=== PATIENT | male | born 1985 | race Caucasian/White ===

== ENCOUNTER 2025-04-14 22:33 | Emergency (ER) | payer OTHER, SELFPAY ==
[2025-04-14 22:33] VITALS: BP 148/88; PULSE 62; RESP 18; TEMP 36.6; O2SAT 100; BMI 25.9
[2025-04-14] MEDS: Ketorolac 30 MG/ML Syringe IM (22:52)
--- OUTSIDE RECORDS SUMMARY | 2025-04-14 22:56 | XMS RPT_ITS | CCD ---
Author Organization [facility] Care Team Providers Care Spot Welder Name Role Phone CHATA, DR CAYDEN Guerrero Admitting Unavaila ble CHATA, DR CAYDEN Guerrero Attending Unavaila ble CHATA, DR CAYDEN Guerrero Primary Care Unavaila ble MARGO, MADISYN Attending Unavailable ARAGON, MADISYN Primary Care Unavailable MADISYN ARAGON Admitting Unavailable BALTES CHECK OUT CASHIER-ARCHITECTURAL DRAFTER, DAVID Attending Unavailabl e BALTES CHECK OUT CASHIER-ARCHITECTURAL DRAFTER, DAVID Primary Care Unavailabl e Results Test Name Value Interpretation Reference Range Facil ity .Auto Diffon 02-17-2023 Basophil, Absolute 0.0 10 3/mcL Normal 0.0-0.2 [facility] ([place]) Comment on above: Performed By: #### G FR, CMP, LIPID, ANEU, ADIFF, CBC #### [address] [address] Basophils/100 WBC (Bld) 0.5 % Normal 0.0-2.5 [facility] ([place]) Comment on above: Performed By: #### G FR, CMP, LIPID, ANEU, ADIFF, CBC #### [address] [address] Eosinophil, Absolute 0.2 10 3/mcL Normal 0.0-0.4 [facility] ([place]) Comment on above: Performed By: #### G FR, CMP, LIPID, ANEU, ADIFF, CBC #### [address] [address] Eosinophils/100 WBC (Bld) 3.3 % Normal 0.0-7.0 [facility] ([place]) Comment on above: Performed By: #### G FR, CMP, LIPID, ANEU, ADIFF, CBC #### [address] [address] Lymphocyte, Absolute 1.5 10 3/mcL Normal 0.8-3.9 [facility] ([place]) Comment on above: Performed By: #### G FR, CMP, LIPID, ANEU, ADIFF, CBC #### [address] [address] Lymphocytes/100 WBC (Bld) 25.3 % Normal 10.0-50.0 [facility] ([place]) Comment on above: Performed By: #### G FR, CMP, LIPID, ANEU, ADIFF, CBC #### [address] [address] Monocyte, Absolute 0.5 10 3/mcL Normal 0.2-1.0 [facility] ([place]) Comment on above: Performed By: #### G FR, CMP, LIPID, ANEU, ADIFF, CBC #### [address] [address] Monocytes/100 WBC (Bld) 7.8 % Normal 1.7-13.0 [facility] ([place]) Comment on above: Performed By: #### G FR, CMP, LIPID, ANEU, ADIFF, CBC #### [address] [address] Neutrophils/100 WBC (Bld) 63.1 % Normal 37.0-80.0 [facility] ([place]) Comment on above: Performed By: #### G FR, CMP, LIPID, ANEU, ADIFF, CBC #### [address] [address] .GFRon 02-17-2023 GFR 122 ml/min/1.73sqm Normal [facility] ([place]) Comment on above: Result Comment: GFR Population mean for , Non- Americans Ages 20-29 = 116 mL/min/1.73 sq.m. Ages 30-39 = 107 mL/min/1.73 sq.m. Ages 40-49 = 99 mL/min/1.73 sq.m. Ages 50-59 = 93 mL/min/1.73 sq.m. Ages 60-69 = 85 mL/min/1.73 sq.m. Ages 70+ = 75 mL/min/1.73 sq.m. Chronic Kidney Disease: Less than 60 mL/min/1.73 square meters End Stage Renal Disease: Less than 15 mL/min/1.73 square meters Performed By: #### G FR, CMP, LIPID, ANEU, ADIFF, CBC #### [address] [address] GFR Non- 100 ml/min/1.73sqm Normal [facility] ([place]) Comment on above: Result Comment: GFR Population mean for , Non- Americans Ages 20-29 = 116 mL/min/1.73 sq.m. Ages 30-39 = 107 mL/min/1.73 sq.m. Ages 40-49 = 99 mL/min/1.73 sq.m. Ages 50-59 = 93 mL/min/1.73 sq.m. Ages 60-69 = 85 mL/min/1.73 sq.m. Ages 70+ = 75 mL/min/1.73 sq.m. Chronic Kidney Disease: Less than 60 mL/min/1.73 square meters End Stage Renal Disease: Less than 15 mL/min/1.73 square meters Performed By: #### G FR, CMP, LIPID, ANEU, ADIFF, CBC #### [address] [address] .NEUABSon 02-17-2023 Neutrophil, Absolute 3.7 10 3/mcL Normal 2.9-6.2 [facility] ([place]) Comment on above: Performed By: #### G FR, CMP, LIPID, ANEU, ADIFF, CBC #### [address] [address] CBCon 02-17-2023 Erythrocyte distribution width (RBC) [Ratio] 12.8 % Normal 11.5-14.5 [facility] ([place]) Comment on above: Performed By: #### G FR, CMP, LIPID, ANEU, ADIFF, CBC #### [address] [address] Hematocrit (Bld) [Volume fraction] 44.1 % Normal 42.0-52.0 [facility] ([place]) Comment on above: Performed By: #### G FR, CMP, LIPID, ANEU, ADIFF, CBC #### [address] [address] Hgb 14.6 G/dL Normal 14.0-18.0 [facility] ([place]) Comment on above: Performed By: #### G FR, CMP, LIPID, ANEU, ADIFF, CBC #### [address] [address] MCH (RBC) [Entitic mass] 29.5 pg Normal 27.0-31.2 [facility] ([place]) Comment on above: Performed By: #### G FR, CMP, LIPID, ANEU, ADIFF, CBC #### [address] [address] MCHC 33.2 G/dL Normal 31.8-35.4 [facility] ([place]) Comment on above: Performed By: #### G FR, CMP, LIPID, ANEU, ADIFF, CBC #### [address] [address] MCV (RBC) [Entitic vol] 89.0 fL Normal 80.0-94.0 [facility] ([place]) Comment on above: Performed By: #### G FR, CMP, LIPID, ANEU, ADIFF, CBC #### [address] [address] Platelet 237 10 3/mcL Normal 130-400 [facility] ([place]) Comment on above: Performed By: #### G FR, CMP, LIPID, ANEU, ADIFF, CBC #### [address] [address] Platelet mean volume (Bld) [Entitic vol] 8.1 fL Normal 7.4-10.4 [facility] ([place]) Comment on above: Performed By: #### G FR, CMP, LIPID, ANEU, ADIFF, CBC #### [address] [address] RBC 4.95 10 6/mcL Normal 4.04-6.13 [facility] ([place]) Comment on above: Performed By: #### G FR, CMP, LIPID, ANEU, ADIFF, CBC #### [address] [address] WBC 5.9 10 3/mcL Normal 4.6-10.8 [facility] ([place]) Comment on above: Performed By: #### G FR, CMP, LIPID, ANEU, ADIFF, CBC #### [address] [address] CMPon 02-17-2023 Albumin Level 4.5 G/dL Normal 3.5-5.0 [facility] ([place]) Comment on above: Performed By: #### G FR, CMP, LIPID, ANEU, ADIFF, CBC #### [address] [address] Albumin/Globulin [Mass ratio] 1.7 {ratio} Normal 1.1-2.5 [facility] ([place]) Comment on above: Performed By: #### G FR, CMP, LIPID, ANEU, ADIFF, CBC #### [address] [address] ALP [Catalytic activity/Vol] 72 U/L Normal 40-135 [facility] ([place]) Comment on above: Performed By: #### G FR, CMP, LIPID, ANEU, ADIFF, CBC #### [address] [address] ALT [Catalytic activity/Vol] 15 U/L Low 16-63 [facility] ([place]) Comment on above: Performed By: #### G FR, CMP, LIPID, ANEU, ADIFF, CBC #### [address] [address] AST [Catalytic activity/Vol] 10 U/L Normal 10-40 [facility] ([place]) Comment on above: Performed By: #### G FR, CMP, LIPID, ANEU, ADIFF, CBC #### [address] [address] Bili Total 0.7 mg/dL Normal 0.2-1.0 [facility] ([place]) Comment on above: Result Comment: Use of this assay is not recommended for patients undergoing treatment with eltrombopag due to the potential for falsely elevated results. Performed By: #### G FR, CMP, LIPID, ANEU, ADIFF, CBC #### [address] [address] BUN/Creatinine Ratio 20 ratio Normal 7-27 [facility] ([place]) Comment on above: Performed By: #### G FR, CMP, LIPID, ANEU, ADIFF, CBC #### [address] [address] Calcium [Mass/Vol] 8.6 mg/dL Normal 8.4-10.2 [facility] ([place]) Comment on above: Performed By: #### G FR, CMP, LIPID, ANEU, ADIFF, CBC #### [address] [address] Chloride [Moles/Vol] 105 mmol/L Normal 98-107 [facility] ([place]) Comment on above: Performed By: #### G FR, CMP, LIPID, ANEU, ADIFF, CBC #### [address] [address] CO2 [Moles/Vol] 29 mmol/L Normal 22-29 [facility] ([place]) Comment on above: Performed By: #### G FR, CMP, LIPID, ANEU, ADIFF, CBC #### [address] [address] Creatinine [Mass/Vol] 0.85 mg/dL Normal 0.70-1.30 [facility] ([place]) Comment on above: Performed By: #### G FR, CMP, LIPID, ANEU, ADIFF, CBC #### [address] [address] Electrolyte Balance 9.0 mEq/L Normal 4.0-15.0 [facility] ([place]) Comment on above: Performed By: #### G FR, CMP, LIPID, ANEU, ADIFF, CBC #### [address] [address] Globulin 2.7 G/dL Normal [facility] ([place]) Comment on above: Performed By: #### G FR, CMP, LIPID, ANEU, ADIFF, CBC #### [address] [address] Glucose [Mass/Vol] 93 mg/dL Normal 70-105 [facility] ([place]) Comment on above: Performed By: #### G FR, CMP, LIPID, ANEU, ADIFF, CBC #### [address] [address] Potassium [Moles/Vol] 4.3 mmol/L Normal 3.5-5.1 [facility] ([place]) Comment on above: Performed By: #### G FR, CMP, LIPID, ANEU, ADIFF, CBC #### [address] [address] Sodium [Moles/Vol] 143 mmol/L Normal 136-145 [facility] 1928–[facility]) Comment on above: Performed By: #### G FR, CMP, LIPID, ANEU, ADIFF, CBC #### [address] [address] Total Protein 7.2 G/dL Normal 6.4-8.2 [facility]) Comment on above: Performed By: #### G FR, CMP, LIPID, ANEU, ADIFF, CBC #### [address] [address] Urea nitrogen [Mass/Vol] 17 mg/dL Normal 7-18 [facility]) Comment on above: Performed By: #### G FR, CMP, LIPID, ANEU, ADIFF, CBC #### [address] [address] LIPIDon 02-17-2023 Cholesterol [Mass/Vol] 129 mg/dL Normal 0-200 [facility] ([place]) Comment on above: Result Comment: Chol esterol Reference Interval: Less than 200 Desirable 200-239 Borderline high risk 240 and above High risk Performed By: #### G FR, CMP, LIPID, ANEU, ADIFF, CBC #### [address] [address] Cholesterol in HDL [Mass/Vol] 65 mg/dL High 40-60 [facility] ([place]) Comment on above: Performed By: #### G FR, CMP, LIPID, ANEU, ADIFF, CBC #### [address] [place], [place] [address] Cholesterol in LDL [Mass/Vol] 57 mg/dL Normal 0-130 [facility] ([place]) Comment on above: Performed By: #### G FR, CMP, LIPID, ANEU, ADIFF, CBC #### [id number] [place], [place] [address] Triglyceride [Mass/Vol] 37 mg/dL Normal 0-150 [facility] ([place]) Comment on above: Result Comment: Trig lyceride Reference Interval: Less than 150 Normal 150-199 Borderline high risk 200-499 High risk 500 or higher Very high risk Performed By: #### G FR, CMP, LIPID, ANEU, ADIFF, CBC #### [address] [address] CORONAVIRUS PCR - [facility] 05-13-2021 SARS-CoV-2 (COVID-19) RNA MARICRUZ+probe Ql (Unsp spec) Positive Abnormal NORMAL: NEGATIVE [facility] Comment on above: Result Comment: { CA LLED TO INFECTION CONTROL { READ BACK BY Performed By: #### 2 [id number] #### [facility],[address] [place] [address] SEND TO IC? YES Normal [facility] Comment on above: Result Comment: RESU LTS FAXED TO INFECTION CONTROL. SARS-CoV-2 THIS TEST IS BEING USED UNDER THE FDA EUA PROCEDURE. THIS ASSAY HAS BEEN VALIDATED IN THE [facility] FOR USE WITH NASOPHARYNGEAL SPECIMENS IN [facility]. INTERPRETIVE DATA LABORATORY TEST RESULTS SHOULD ALWAYS BE CONSIDERED IN THE CONTEXT OF CLINICAL OBSERVATIONS AND EPIDEMIOLOGICAL DATA IN MAKING FINAL DIAGNOSIS AND PATIENT MANAGEMENT DECISIONS. PATIENT MANAGEMENT SHOULD FOLLOW CURRENT CDC GUIDELINES. A POSITIVE TEST RESULT FOR COVID-19 INDICATES THAT RNA FROM SARS-CoV-2 WAS DETECTED, AND THE PATIENT IS INFECTED WITH THE VIRUS AND PRESUMED TO BE CONTAGIOUS. A NEGATIVE TEST RESULT FOR THIS TEST MEANS THAT SARS-CoV-2 RNA WAS NOT PRESENT IN THE SPECIMEN ABOVE THE LIMIT OF DETECTION. HOWEVER, A NEGATVIE RESULT DOES NOT RULE OUT COVID-19 AND SHOULD NOT BE USED THE SOLE BASIS FOR TREATMENT OR PATIENT MANAGEMENT DECISIONS. A NEGATIVE RESULT DOES NOT EXCLUDE THE POSSIBILITY OF COVID-19. WHEN DIAGNOSTIC TESTING IS NEGATIVE, THE POSSIBLILTY OF A FALSE NEGATIVE RESULT SHOULD BE CONSIDERED IN THE CONTEXT OF A PATIENT'S RECENT EXPOSURES AND THE PRESENCE OF CLINICAL SIGNS AND SYMPTOMS CONSISTENT WITH COVID-19. THE POSSIBILITY OF A FALSE NEGATIVE RESULT SHOULD ESPECIALLY BE CONSIDERED IF THE PATIENT'S RECENT EXPOSURES OR CLINICAL PRESENTATION INDICATE THAT COVID-19 IS LIKELY, AND DIAGNOSTIC TESTS FOR OTHER CAUSES OF ILLNESS (e.g., OTHER RESPIRATORY ILLNESS) ARE NEGATIVE. IF COVID-19 IS STILL SUSPECTED BASED ON EXPOSURE HISTORY TOGETHER WITH OTHER CLINICAL FINDINGS, RE-TESTED SHOULD BE CONSIDERED BY HEALTHCARE PROVIDERS IN CONSULTATION WITH PUBLIC HEALTH AUTHORITIES. Performed By: #### 2 [id number] #### [facility],[address] [place] [address] CORONAVIRUS (SARS) ANTIGEN T ESTon 04-03-2021 EXTERNAL QC DONE? YES Normal [facility] Comment on above: Performed By: #### 2 [id number] #### [facility],[address] [place] [address] INTERNAL CONTROL PASS Normal [facility] Comment on above: Performed By: #### 2 [id number] #### [address] [address] SARS ANTIGEN Negative Normal NORMAL: NEGATIVE [facility] Comment on above: Performed By: #### 2 [id number] #### [facility],[address] [place] [address] SEND TO ? YES Normal [facility] Comment on above: Result Comment: SARS -CoV-2 THIS TEST IS BEING USED UNDER THE FDA EUA PROCEDURE. THIS ASSAY HAS BEEN VALIDATED AT [facility] FOR USE WITH NASAL AND NASOPHARYNGEAL SWAB SPECIMENS. INTERPRETIVE DATA TEST RESULTS SHOULD ALWAYS BE CONSIDERED IN THE CONTEXT OF CLINICAL OBSERVATIONS AND EPIDEMIOLOGICAL DATA IN MAKING FINAL DIAGNOSIS AND PATIENT MANAGEMENT DECISIONS. PATIENT MANAGEMENT SHOULD FOLLOW CURRENT CDC GUIDELINES. THE ENRIQUE SARS ANTIGEN CURTIS DOES NOT DIFFERENTIATE BETWEEN SARS-CoV & SARS-CoV-2. A POSITIVE TEST RESULT INDICATES THE PRESENCE OF SARS-CoV-2 NUCLEOCAPSID PROTEIN ANTIGEN, AND THE PATIENT IS INFECTED WITH THE VIRUS AND PRESUMED TO BE CONTAGIOUS. A NEGATIVE TEST RESULT FOR THIS TEST MEANS THAT SARS-CoV-2 NUCLEOCAPSID PROTEIN ANTIGEN WAS NOT PRESENT IN THE SPECIMEN ABOVE THE LIMIT OF DETECTION. HOWEVER, A NEGATIVE RESULT DOES NOT RULE OUT COVID-19 AND SHOULD NOT BE USED THE SOLE BASIS FOR TREATMENT OR PATIENT MANAGEMENT DECISIONS. A NEGATIVE RESULT DOES NOT EXCLUDE THE POSSIBILITY OF COVID-19. NEGATIVE RESULTS, FROM PATIENTS WITH SYMPTOM ONSET BEYOND FIVE DAYS, SHOULD BE TREATED PRESUMPTIVE AND CONFIRMATION WITH A MOLECULAR ASSAY, IF NECESSARY, FOR PATIENT MANAGEMENT, MAY BE PERFORMED. WHEN DIAGNOSTIC TESTING IS NEGATIVE, THE POSSIBLILTY OF A FALSE NEGATIVE RESULT SHOULD BE CONSIDERED IN THE CONTEXT OF A PATIENT'S RECENT EXPOSURES AND THE PRESENCE OF CLINICAL SIGNS AND SYMPTOMS CONSISTENT WITH COVID-19. THE POSSIBILITY OF A FALSE NEGATIVE RESULT SHOULD ESPECIALLY BE CONSIDERED IF THE PATIENT'S RECENT EXPOSURES OR CLINICAL PRESENTATION INDICATE THAT COVID-19 IS LIKELY, AND DIAGNOSTIC TESTS FOR OTHER CAUSES OF ILLNESS (e.g., OTHER RESPIRATORY ILLNESS) ARE NEGATIVE. IF COVID-19 IS STILL SUSPECTED BASED ON EXPOSURE HISTORY TOGETHER WITH OTHER CLINICAL FINDINGS, RE-TESTING SHOULD BE CONSIDERED BY HEALTHCARE PROVIDERS IN CONSULTATION WITH PUBLIC HEALTH AUTHORITIES. Performed By: #### 2 [id number] #### [facility],[address] [place] [address] Coronavirus 2019 0 COVID 19 Result RADIATOR CLEANER Normal Negative for COVID19 (SARS CoV2) by PCR. [facility] Comment on above: Result Comment: Nega tive for This test was developed and its performance characteristics determined by [facility]'s [facility] [place]. This test has been authorized by FDA under an Emergency Use Authorization (EUA). This test has been validated in accordance with the FDA's Guidance Document Policy for Diagnostics Testing in Laboratories Certified to Perform High Complexity Testing under CLIA prior to Emergency use Authorization for Coronavirus Disease 2019 during the Public Health Emergency issued on July 02, 2019. COVID19 (SARS This test was developed and its performance characteristics determined by [facility]'s [facility] [place]. This test has been authorized by FDA under an Emergency Use Authorization (EUA). This test has been validated in accordance with the FDA's Guidance Document Policy for Diagnostics Testing in Laboratories Certified to Perform High Complexity Testing under CLIA prior to Emergency use Authorization for Coronavirus Disease 2019 during the Public Health Emergency issued on July 02, 2019. CoV2) by PCR. This test was developed and its performance characteristics determined by [facility]'s [facility] [place]. This test has been authorized by FDA under an Emergency Use Authorization (EUA). This test has been validated in accordance with the FDA's Guidance Document Policy for Diagnostics Testing in Laboratories Certified to Perform High Complexity Testing under CLIA prior to Emergency use Authorization for Coronavirus Disease 2019 during the Public Health Emergency issued on July 02, 2019. COVID 19 Source RADIATOR CLEANER RADIATOR CLEANER Normal [facility] Reference Lab Hep C Ab IA w/Confon 019 Hepatitis C Ab IA NEGAT Normal Negative [facility] Reference Lab Comment on above: Performed By: #### H BSAG, [id number] #### [facility] Laboratories Routine Lab [address] [address] Hepatitis B Surf. Agon 05-03 Hepatitis B Surf. Ag NEGAT Normal Negative [facility] Comment on above: Performed By: #### H BSAG, [id number] #### [facility] Routine Lab [address] [address] Encounters Encounter Date Encounter Type Care Provider Facility Start: 08-21-2023 End: 08-26-2023 ambulatory Facility:[facility] Start: 02-17-2023 End: 02-22-[facility]23 [facility] Start: 02-17-2023 End: 02-22-2023 Encounter for general adult medical examination without abnormal findings [facility] Start: 05-13-2021 End: 05-13-[address] CAYDEN BRIZUELA [facility] Start: 04-03-2021 End: 04-03-2021 ambulatory MADISYN ARAGON [facility] Payers Date Payer Category Payer Self-pay 2023 Unknown 2023 Private Health Insurance [id number] 1985 Unknown [id number] [id number] [id number] 1985 Unknown [id number] [id number] [id number] 1985 Unknown [id number] [id number] Unknown [id number] Unknown [id number] 2.16.8 [id number] Summary Purpose Family History No Family History Records FoundNo Family History Records FoundNo Family History Records FoundNo Family History Records Found Advance Directives No Advanced Directives Records FoundNo Advanced Directives Records FoundNo Advanced Directives Records FoundNo Advanced Directives Records Found Additional Source Comments (unrecognized sect ion and content) No Status Records FoundNo Status Records FoundNo Status Records FoundNo Status Records Found INFORMATION SOURCE (unrecogn ized section and content) DATE CREATED AUTHOR 12/03/2019 [facility] DATE CREATED AUTHOR AUTHOR'S ORGANIZ ATION 05/14/2021 [facility] DATE CREATED AUTHOR AUTHOR'S ORGANIZ ATION 02/23/2023 [facility] ([place]) DATE CREATED AUTHOR AUTHOR'S ORGANIZ ATION 08/27/2023 [facility] FOR RECORDS PERTAINING TO PATIENTS WHO ARE OR HAVE BEEN ENROLLED IN A CHEMICAL DEPENDENCY/SUBSTANCEABUSE PROGRAM, SOME INFORMATION MAY BE OMITTED. This clinical summary was aggregated from multiple sources. Caution should be exercised in using it in the provision of clinical care. This summary normalizes information from multiple sources, and as a consequence, information in this document may materially change the coding, format and clinical context of patient data. In addition, data may be omitted in some cases. CLINICAL DECISIONS SHOULD BE BASED ON THE PRIMARY CLINICAL RECORDS. [facility]. provides no warranty or guarantee of the accuracy or completeness of information in this document.
--- NOTE | 2025-04-14 23:48 | EX.ED.DYSGE1 ---
HPI History of Present Illness Chief Complaint: Other, Pain/Inj Narrative Narrative: Patient was seen and examined after presenting to ED for right paracervical muscle spasm causing radicular pains down into his right arm and hand states has been ongoing for couple days but got worse today denies having any fevers or rash no reported trauma. PFSH PFSH Home Medications ?Medication ?Instructions ?Recorded ?Last Taken ?Type multivitamin 1 cap PO QAM 08/30/17 Unknown History methylprednisolone 4 mg tablets in 4 mg PO QODAY #21 tabs 06/12/23 Unknown Rx a dose pack (Medrol (Toribio)) doxycycline hyclate 100 mg capsule 100 mg PO BID #20 caps 02/18/24 Unknown Rx valacyclovir 1 gram tablet 1,000 mg PO Q12H #60 tabs 09/13/24 Unknown Rx cyclobenzaprine 5 mg tablet 5 mg PO TID PRN muscle spasm #21 04/14/25 Unknown Rx tabs Allergy/AdvReac Type Severity Reaction Status Date / Time No Known Allergies Allergy Verified 04/14/25 22:35 Family History Other Breast cancer Colon cancer Surgical History History of repair of anterior cruciate ligament of left knee Social History Smoking Status: Never smoker alcohol intake: never ROS ROS ED ROS Narrative Pertinent Positives: Right paracervical muscle spasm causing pain radiating into his right upper extremity Pertinent Negatives: Weakness dropping things fevers chills rash chest pain shortness of breath photophobia The remainder of review of systems negative unless otherwise stated in the HPI above. Systems reviewed including constitutional, psychiatric, cardiovascular, respiratory, integument, HENT, gastrointestinal. EXAM Physical Exam Narrative Exam Narrative: Afebrile hemodynamically stable does not appear toxic or in distress he has normal range of motion of his head and neck. Intact his skin and his chest but has reproducible pain on palpation at that right upper cervical paraspinal musculature and will radiate down into his right hand. Same thing with his right trapezius muscle but to lesser extent he does not have any overlying erythema vesicular lesions hemorrhagic bullae other discoloration of the skin or vesicular lesions no swelling noted nothing involving the axilla no evidence of compartment syndrome he has intact and equal MSPs in his extremities skin is warm and well-perfused full range of motion of his upper extremity otherwise Const Vital Signs: 04/14/25 22:33 04/14/25 22:55 Temperature 97.8 F Temperature Source Temporal Pulse Rate 62 Respiratory Rate 18 Respiratory Effort Normal Respiratory Pattern Normal Blood Pressure 148/88 H Blood Pressure Mean 108 Pulse Ox 100 Oxygen Delivery Method Room Air MDM MDM MDM Narrative Medical decision making narrative: Nursing notes, triage notes, available previous documentation, and vital signs were reviewed. Any discrepancies noted were addressed. Differential Diagnoses: Cervical paraspinal muscle spasm also on muscle spasm involving the right trapezius muscle low suspicion for cellulitis or necrotizing process this is not shingles or compartment syndrome does not seem to be related to herniated disc either Interventions: Toradol Valium Imaging Reviewed: Considered CT cervical spine offered to the patient but ultimately declined which I think is reasonable considering the location of the symptoms itself Previous Documentation Reviewed: None available or applicable at this time. ED Course: Patient presenting with symptoms as described above he has paraspinal cervical muscle spasm with involvement of his trapezius muscle causing likely shoulder impingement syndrome patient was given medications he will be reevaluated. 2345: On reevaluation patient still has some pain but he states that it dulled and has improved he will be given return precautions follow-up recommendations as well as prescriptions he is stable for discharge home This note was made utilizing voice recognition software. All attempts were made to correct spelling or other errors prior to note completion. However, due to the fast-paced nature of emergency medicine, some errors may still be present. Discharge Plan Triage Chief Complaint: Other, Pain/Inj ED Provider: Leonard Elizondo Dx/Rx/DC Orders Clinical Impression: Cervical paraspinal muscle spasm, Spasm of right trapezius muscle, Shoulder impingement syndrome Instructions: ED Neck Spasm, No Trauma, ED Shoulder Impingement Syndrome Prescriptions: New cyclobenzaprine 5 mg tablet 5 mg PO TID PRN (Reason: muscle spasm) Qty: 21 0RF No Action multivitamin capsule 1 cap PO QAM methylprednisolone [Medrol (Toribio)] 4 mg tablets,dose pack 4 mg PO QODAY Qty: 21 0RF Rx Instructions: Dispense 1 Dosepak. Take Dosepak as instructed on package. doxycycline hyclate 100 mg capsule 100 mg PO BID Qty: 20 0RF valacyclovir 1 gram tablet 1,000 mg PO Q12H Qty: 60 3RF Primary Care Provider: Julio Urrutia Referrals: Julio Urrutia DO [Primary Care Provider, [facility]] Activity Restrictions/Additional Instructions: Please follow-up with your primary care doctor please return if you start developing a rash or fevers. Or worsening symptoms. We will provide you with a muscle relaxer please do not drive or operate heavy machinery while on muscle relaxer itself and also avoid climbing heights Print Language: New Zealander Disposition Disposition: Home, Self Care
[2025-04-14 23:55] VITALS: BP 105/70; PULSE 66; RESP 14; TEMP 36.8; O2SAT 100
== END 2025-04-14 23:56 | disposition home or self-care (01) ==
PROVIDERS: Emergency Provider Specialist/Technologist Athletic Trainer; PCP Preventive Medicine Occupational Medicine; Visit Provider Specialist/Technologist Athletic Trainer
DX: M62.838 Other muscle spasm (principal); M25.811 Other specified joint disorders, right shoulder
CPT/HCPCS: 96372; 99282

== ENCOUNTER 2025-04-16 10:09 | Emergency (ER) | payer OTHER, SELFPAY ==
[2025-04-16 10:10] VITALS: BP 130/84; PULSE 67; RESP 17; TEMP 36.1; O2SAT 100; BMI 25.4
--- NOTE | 2025-04-16 10:25 | CT_ITS ---
PROCEDURE: SPINE CERVICAL WITHOUT CONTRAS 04/16/2025 REASON FOR EXAM: CERVICAL RADICULOPATHY RIGHT SIDE TECHNIQUE: Procedure Code: CTSPC Modality: CT Procedure: SPINE CERVICAL WITHOUT CONTRAS Coronal and Sagittal reconstruction series were provided. One or more dose reduction techniques were used (e.g., Automated exposure control, adjustment of the mA and/or kV according to patient size, use of iterative reconstruction technique. RADIATION DOSE SUMMARY: CTDlvol: 17.09 mGy DLP: 386.91 mGycm COMPARISON: None FINDINGS: Alignment: Normal alignment. Vertebrae: No acute bony abnormalities. Soft Tissues: No soft tissue abnormalities. C1-2: Unremarkable. C2-3: Unremarkable C3-4: Unremarkable C4-5: Unremarkable C5-6: Unremarkable C6-7: Unremarkable C7-T1: Unremarkable CT/Spine Cervical without Contras IMPRESSION: Unremarkable CT scan of the cervical spine without significant foraminal or can al stenosis. Reading Location: [id number]
--- NOTE | 2025-04-16 10:29 | EDS_ITS ---
HPI History of Present Illness Chief Complaint: Other, Pain/Inj Narrative Narrative: Patient is a 39-year-old male presenting to the emergency department for right sided neck and arm pain. Patient has a past medical history of shoulder impingement syndrome, spasm of the right trapezius muscle and cervical paraspinal muscle spasm. Patient states that for about the past week he has had pain on the right side of his neck down into his right arm. States that he came in on 04/14 and received Valium and Toradol and felt some very mild improvement. He denies any falls or trauma to his neck. Denies chest pain or SOB. States he has been taking Flexeril at home with no improvement last night or this morning. States he is now having numbness in his second and third right fingers only. Denies numbness to the arm or weakness of the arm. PFSH PFSH Home Medications ?Medication ?Instructions ?Recorded ?Last Taken ?Type multivitamin 1 cap PO QAM 08/30/17 Unknow n History methylprednisolone 4 mg tablets in 4 mg PO QODAY #21 t abs 06/12/23 Unknown Rx a dose pack ([employer] (Toribio)) doxycycline hyclate 100 mg capsule 100 mg PO BID #20 c aps 02/18/24 Unknown Rx valacyclovir 1 gram tablet 1,000 mg PO Q12H #60 tabs 0 09/13/24 Unknown Rx cyclobenzaprine 5 mg tablet 5 mg PO TID PRN muscle spa sm #21 04/14/25 Unknown Rx tabs prednisone 20 mg tablet 40 mg (2 x 20 mg) PO DAILY 5 days 04/16/25 Unknown Rx #10 tabs Allergy/AdvReac Type Severity Reaction Status Date / Time No Known Allergies Allergy Verified 04/16/25 10:10 Family History Other Breast cancer Colon cancer Surgical History History of repair of anterior cruciate ligament of left knee Social History (Updated 04/16/25 @ 10:48 by Naima Garcia) household members: spouse housing: house current occupational status: employed Smoking Status: Never smoker alcohol intake: never ROS ROS ED ROS Narrative see HPI EXAM Physical Exam Narrative Exam Narrative: Vital signs: Reviewed General: Alert and orientedx3. No acute distress. Well-appearing, nontoxic HEENT: Head is normocephalic and atraumatic, sinuses nontender, pupils equal round and reactive. Nares are patent. Oropharynx and throat exams normal. Neck: Supple without lymphadenopathy nontender. No midline cervical spinal tenderness to palpation. No step-offs or deformities. No tenderness of the trapezius muscle. Cardiovascular: Regular rate and rhythm, no murmurs. No rubs or gallops. Normal S1 and S2 Respiratory: Clear to auscultation bilaterally. No wheezes, rales, rhonchi Abdominal: Soft and nontender. Normal bowel sounds. No guarding or rebound. Nonsurgical abdomen Extremities: No tenderness to palpation of the right scapula, shoulder, upper arm, elbow, forearm, wrist or hand. ROM normal with active motion of shoulder, elbow and wrist. No bruising. No swelling of the arm. Right radial pulse intact. Skin: No rash or redness. Neurological: Cranial nerves II through XII are grossly intact. Normal strength and sensation. There is subjective numbness in second and third right fingers only. Otherwise has normal sensation in radial and median distributions in the right hand and normal sensations in the right arm. Normal cerebellar function The rest of the physical exam is unremarkable Const Vital Signs: 04/16/25 10:10 04/16/25 10:48 04/16/25 12:10 Temperature 96.9 F L Temperature Source Temporal Pulse Rate 67 71 Respiratory Rate 17 16 Respiratory Effort Normal Non-Labored Respiratory Pattern Normal Blood Pressure 130/84 H 130/76 H Blood Pressure Mean 99 94 Pulse Ox 100 100 Oxygen Delivery Method Room Air 04/16/25 12:20 Temperature 98 F Temperature Source Pulse Rate 71 Respiratory Rate 16 Respiratory Effort Respiratory Pattern Blood Pressure 130/76 H Blood Pressure Mean 94 Pulse Ox 100 Oxygen Delivery Method MDM MDM MDM Narrative Medical decision making narrative: Patient is a 39-year-old male presenting to the emergency department for right neck and arm pain. Patient was seen and examined. Vitals are stable. Patient resting in bed comfortably in no acute distress. Differential includes but is not limited to: Cervical radiculopathy, muscle spasm, trapezius muscle strain, ACS, do not think this is aortic in nature given patient's vital signs, clinical picture and multiple days of symptoms. EKG shows normal sinus rhythm at a rate of 61 with no ischemic changes. No dysrhythmia. Patient given Toradol and Valium for symptomatic control. I did discuss CT imaging that he declined 2 days ago and he is agreeable now. CT shows no significant foraminal or canal stenosis. I do not think the patient requires x-rays of his shoulder or arm as he had no traumatic injury and has no obvious deformities with normal active range of motion. Patient was reevaluated and updated on the negative imaging findings. Updated on the negative EKG. I will prescribe a short course of prednisone to help with what is presumed to be cervical radiculopathy. I encouraged him to take NSAIDs and the Flexeril at home to help with the symptoms and to follow-up with his primary care. Patient discharged from the Emergency Department. I do not feel that the patient's evaluation reveals any acute reason for admission at this time. I instructed them to either follow-up with their primary care physician or promptly return to the Emergency Department for reevaluation should symptoms worsen or new symptoms develop. I explained what symptoms would indicate the need to return to the emergency department. Shared decision making was used. The patient voiced understanding of the treatment plan and is agreeable with it. Clinical impression Cervical radiculopathy History & Record Review Discussion w/independent historian: Patient and Significant other Additional record(s) reviewed:: Prior ED visit Radiography Diagnostic Testing: Clinical Impression(s) from Imaging Studies Cervical Spine CT 04/16/25 10:25 IMPRESSION: Unremarkable CT scan of the cervical spine without significant foraminal or canal stenosis. Reading Location: [facility] Discharge Plan Triage Chief Complaint: Other, Pain/Inj ED Provider: Mis Padilla Dx/Rx/DC Orders Clinical Impression: Cervical radiculopathy Instructions: Cervical Radiculopathy Prescriptions: New prednisone 20 mg tablet 40 mg PO DAILY 5 Days Qty: 10 0RF No Action multivitamin capsule 1 cap PO QAM methylprednisolone [Medrol (Toribio)] 4 mg tablets,dose pack 4 mg PO QODAY Qty: 21 0RF Rx Instructions: Dispense 1 Dosepak. Take Dosepak as instructed on package. cyclobenzaprine 5 mg tablet 5 mg PO TID PRN (Reason: muscle spasm) Qty: 21 0RF doxycycline hyclate 100 mg capsule 100 mg PO BID Qty: 20 0RF valacyclovir 1 gram tablet 1,000 mg PO Q12H Qty: 60 3RF Primary Care Provider: Julio Urrutia Referrals: Julio Urrutia DO [Primary Care Provider, [facility]] - As soon as possible Activity Restrictions/Additional Instructions: Take the steroids as prescribed. Continue taking the Flexeril and NSAIDs at home as prescribed. Your evaluation in the Emergency Department did not reveal any acute reason for admission. However, I want to emphasize that you may be early in the course of a disease process or illness even if it is not present. For this reason you should follow-up within 24 hours for reevaluation with either your primary care physician or if necessary back here in the Emergency Department. You should return to the Emergency Department immediately if your symptoms worsen or new symptoms develop. Print Language: Moldovan Disposition Disposition: Home, Self Care Discharge Date/Time: 04/16/25 12:21
--- NOTE | 2025-04-16 10:30 | EKG12_ITS ---
Test Reason : ARRYTH Blood Pressure : */* mmHG Vent. Rate : 61 BPM Atrial Rate : 61 BPM P-R Int : 164 ms QRS Dur : 102 ms QT Int : 380 ms P-R-T Axes : 68 89 65 degrees QTcB Int : 382 ms Normal sinus rhythm Normal ECG Confirmed by GIULIANO YOUNG, COLT ([id number]), newspaper editor managing CARMELO BORREGO ([id number]) on 04/18/2025 1:13:15 PM Referred By: Confirmed By: COLT NOBLES MD
--- OUTSIDE RECORDS SUMMARY | 2025-04-16 10:39 | XMS RPT_ITS | CCD ---
Author Organization [facility] Care Team Providers Care Roll Over Loader Name Role Phone CHATA, DR CAYDEN Guerrero Admitting Unavaila ble CHATA, DR CAYDEN Guerrero Attending Unavaila ble CHATA, DR CAYDEN Guerrero Primary Care Unavaila ble MARGO, MADISYN Attending Unavailable ARAGON, MADISYN Primary Care Unavailable MAIDSYN ARAGON Admitting Unavailable [employer] JOCKEY-BUSINESS OBJECTS DEVELOPER, DAVID Attending Unavailabl e BALTES DISC JOCKEY-BUSINESS OBJECTS DEVELOPER, DAVID Primary Care Unavailabl e Results Test Name Value Interpretation Reference Range Facil ity .Auto Diffon 02-17-2023 Basophil, Absolute 0.0 10 3/mcL Normal 0.0-0.2 [facility] ([place]) Comment on above: Performed By: #### G FR, CMP, LIPID, ANEU, ADIFF, CBC #### [address] [address] Basophils/100 WBC (Bld) 0.5 % Normal 0.0-2.5 [facility] ([place]) Comment on above: Performed By: #### G FR, CMP, LIPID, ANEU, ADIFF, CBC #### [address] [address] Eosinophil, Absolute 0.2 10 3/mcL Normal 0.0-0.4 [facility] ([place]) Comment on above: Performed By: #### G FR, CMP, LIPID, ANEU, ADIFF, CBC #### [address] [address] Eosinophils/100 WBC (Bld) 3.3 % Normal 0.0-7.0 [facility] ([place]) Comment on above: Performed By: #### G FR, CMP, LIPID, ANEU, ADIFF, CBC #### [address] [address] Lymphocyte, Absolute 1.5 10 3/mcL Normal 0.8-3.9 [facility] ([place]) Comment on above: Performed By: #### G FR, CMP, LIPID, ANEU, ADIFF, CBC #### [address] [address] Lymphocytes/100 WBC (Bld) 25.3 % Normal 10.0-50.0 [facility] ([place]) Comment on above: Performed By: #### G FR, CMP, LIPID, ANEU, ADIFF, CBC #### [address] [address] Monocyte, Absolute 0.5 10 3/mcL Normal 0.2-1.0 [facility] ([place]) Comment on above: Performed By: #### G FR, CMP, LIPID, ANEU, ADIFF, CBC #### [address] [address] Monocytes/100 WBC (Bld) 7.8 % Normal 1.7-13.0 [facility] ([place]) Comment on above: Performed By: #### G FR, CMP, LIPID, ANEU, ADIFF, CBC #### [address] [address] Neutrophils/100 WBC (Bld) 63.1 % Normal 37.0-80.0 [facility] ([place]) Comment on above: Performed By: #### G FR, CMP, LIPID, ANEU, ADIFF, CBC #### [address] [address] .GFRon 02-17-2023 GFR 122 ml/min/1.73sqm Normal [facility] ([place]) Comment on above: Result Comment: GFR Population [...] FR, CMP, LIPID, ANEU, ADIFF, CBC #### [address] [address] GFR Non- 100 ml/min/1.73sqm Normal [facility] ([place]) Comment on above: Result Comment: GFR Population [...] FR, CMP, LIPID, ANEU, ADIFF, CBC #### [address] [address] .NEUABSon 02-17-2023 Neutrophil, Absolute 3.7 10 3/mcL Normal 2.9-6.2 [facility] ([place]) Comment on above: Performed By: #### G FR, CMP, LIPID, ANEU, ADIFF, CBC #### [address] [address] CBCon 02-17-2023 Erythrocyte distribution width (RBC) [Ratio] 12.8 % Normal 11.5-14.5 [facility] ([place]) Comment on above: Performed By: #### G FR, CMP, LIPID, ANEU, ADIFF, CBC #### [address] [address] Hematocrit (Bld) [Volume fraction] 44.1 % Normal 42.0-52.0 [facility] ([place]) Comment on above: Performed By: #### G FR, CMP, LIPID, ANEU, ADIFF, CBC #### [address] [address] Hgb 14.6 G/dL Normal 14.0-18.0 [facility] ([place]) Comment on above: Performed By: #### G FR, CMP, LIPID, ANEU, ADIFF, CBC #### [address] [address] MCH (RBC) [Entitic mass] 29.5 pg Normal 27.0-31.2 [facility] ([place]) Comment on above: Performed By: #### G FR, CMP, LIPID, ANEU, ADIFF, CBC #### [address] [address] MCHC 33.2 G/dL Normal 31.8-35.4 [facility] ([place]) Comment on above: Performed By: #### G FR, CMP, LIPID, ANEU, ADIFF, CBC #### [address] [address] MCV (RBC) [Entitic vol] 89.0 fL Normal 80.0-94.0 [facility] ([place]) Comment on above: Performed By: #### G FR, CMP, LIPID, ANEU, ADIFF, CBC #### [address] [address] Platelet 237 10 3/mcL Normal 130-400 [facility] ([place]) Comment on above: Performed By: #### G FR, CMP, LIPID, ANEU, ADIFF, CBC #### [address] [address] Platelet mean volume (Bld) [Entitic vol] 8.1 fL Normal 7.4-10.4 [facility] ([place]) Comment on above: Performed By: #### G FR, CMP, LIPID, ANEU, ADIFF, CBC #### [address] [address] RBC 4.95 10 6/mcL Normal 4.04-6.13 [facility] ([place]) Comment on above: Performed By: #### G FR, CMP, LIPID, ANEU, ADIFF, CBC #### [address] [address] WBC 5.9 10 3/mcL Normal 4.6-10.8 [facility] ([place]) Comment on above: Performed By: #### G FR, CMP, LIPID, ANEU, ADIFF, CBC #### [address] [address] CMPon 02-17-2023 Albumin Level 4.5 G/dL Normal 3.5-5.0 [facility] ([place]) Comment on above: Performed By: #### G FR, CMP, LIPID, ANEU, ADIFF, CBC #### [address] [address] Albumin/Globulin [Mass ratio] 1.7 {ratio} Normal 1.1-2.5 [facility] ([place]) Comment on above: Performed By: #### G FR, CMP, LIPID, ANEU, ADIFF, CBC #### [address] [address] ALP [Catalytic activity/Vol] 72 U/L Normal 40-135 [facility] ([place]) Comment on above: Performed By: #### G FR, CMP, LIPID, ANEU, ADIFF, CBC #### [address] [address] ALT [Catalytic activity/Vol] 15 U/L Low 16-63 [facility] ([place]) Comment on above: Performed By: #### G FR, CMP, LIPID, ANEU, ADIFF, CBC #### [address] [address] AST [Catalytic activity/Vol] 10 U/L Normal 10-40 [facility] ([place]) Comment on above: Performed By: #### G FR, CMP, LIPID, ANEU, ADIFF, CBC #### [address] [address] Bili Total 0.7 mg/dL Normal 0.2-1.0 [facility] ([place]) Comment on above: Result Comment: Use of this assay is not recommended for patients undergoing treatment with eltrombopag due to the potential for falsely elevated results. Performed By: #### G FR, CMP, LIPID, ANEU, ADIFF, CBC #### [address] [address] BUN/Creatinine Ratio 20 ratio Normal 7-27 [facility] ([place]) Comment on above: Performed By: #### G FR, CMP, LIPID, ANEU, ADIFF, CBC #### [address] [address] Calcium [Mass/Vol] 8.6 mg/dL Normal 8.4-10.2 [facility] ([place]) Comment on above: Performed By: #### G FR, CMP, LIPID, ANEU, ADIFF, CBC #### [address] [address] Chloride [Moles/Vol] 105 mmol/L Normal 98-107 [facility] ([place]) Comment on above: Performed By: #### G FR, CMP, LIPID, ANEU, ADIFF, CBC #### [address] [address] CO2 [Moles/Vol] 29 mmol/L Normal 22-29 Replaced by [facility] ([place]) Comment on above: Performed By: #### G FR, CMP, LIPID, ANEU, ADIFF, CBC #### [address] [address] Creatinine [Mass/Vol] 0.85 mg/dL Normal 0.70-1.30 [facility] ([place]) Comment on above: Performed By: #### G FR, CMP, LIPID, ANEU, ADIFF, CBC #### [address] [address] Electrolyte Balance 9.0 mEq/L Normal 4.0-15.0 [facility] ([place]) Comment on above: Performed By: #### G FR, CMP, LIPID, ANEU, ADIFF, CBC #### [address] [address] Globulin 2.7 G/dL Normal [facility] ([place]) Comment on above: Performed By: #### G FR, CMP, LIPID, ANEU, ADIFF, CBC #### [address] [address] Glucose [Mass/Vol] 93 mg/dL Normal 70-105 [facility] ([place]) Comment on above: Performed By: #### G FR, CMP, LIPID, ANEU, ADIFF, CBC #### [address] [address] Potassium [Moles/Vol] 4.3 mmol/L Normal 3.5-5.1 [facility] ([place]) Comment on above: Performed By: #### G FR, CMP, LIPID, ANEU, ADIFF, CBC #### [address] [address] Sodium [Moles/Vol] 143 mmol/L Normal 136-145 [facility]) Comment on above: Performed By: #### G FR, CMP, LIPID, ANEU, ADIFF, CBC #### [address] [address] Total Protein 7.2 G/dL Normal 6.4-8.2 [facility]) Comment on above: Performed By: #### G FR, CMP, LIPID, ANEU, ADIFF, CBC #### [address] [address] Urea nitrogen [Mass/Vol] 17 mg/dL Normal 7-18 [facility]) Comment on above: Performed By: #### G FR, CMP, LIPID, ANEU, ADIFF, CBC #### [address] [address] LIPIDon 02-17-2023 Cholesterol [Mass/Vol] 129 mg/dL Normal 0-200 [facility] ([place]) Comment on above: Result Comment: Chol esterol Reference Interval: Less than 200 Desirable 200-239 Borderline high risk 240 and above High risk Performed By: #### G FR, CMP, LIPID, ANEU, ADIFF, CBC #### [address] [address] Cholesterol in HDL [Mass/Vol] 65 mg/dL High 40-60 [facility] ([place]) Comment on above: Performed By: #### G FR, CMP, LIPID, ANEU, ADIFF, CBC #### [id number] [place], [place] [address] Cholesterol in LDL [Mass/Vol] 57 mg/dL Normal 0-130 [facility] ([place]) Comment on above: Performed By: #### G FR, CMP, LIPID, ANEU, ADIFF, CBC #### [id number] [place], [place] [address] Triglyceride [Mass/Vol] 37 mg/dL Normal 0-150 [facility] ([place]) Comment on above: Result Comment: Trig lyceride Reference Interval: Less than 150 Normal 150-199 Borderline high risk 200-499 High risk 500 or higher Very high risk Performed By: #### G FR, CMP, LIPID, ANEU, ADIFF, CBC #### [address] [address] CORONAVIRUS PCR - [facility] 05-13-2021 SARS-CoV-2 (COVID-19) RNA MARICRUZ+probe Ql (Unsp spec) Positive Abnormal NORMAL: NEGATIVE [facility] Comment on above: Result Comment: { CA LLED TO INFECTION CONTROL { READ BACK BY Performed By: #### 2 [id number] #### [facility],[address] [place] [address] SEND TO IC? YES Normal [facility] Comment on above: Result Comment: RESU LTS FAXED TO INFECTION CONTROL. SARS-CoV-2 THIS TEST IS BEING USED UNDER THE FDA EUA PROCEDURE. THIS ASSAY HAS BEEN VALIDATED IN THE [facility] FOR USE WITH NASOPHARYNGEAL SPECIMENS IN [facility]. INTERPRETIVE DATA LABORATORY TEST RESULTS SHOULD ALWAYS [...] PUBLIC HEALTH AUTHORITIES. Performed By: #### 2 [id number] #### [facility],[address] [place] [address] CORONAVIRUS (SARS) ANTIGEN T ESTon 04-03-2021 EXTERNAL QC DONE? YES Normal [facility] Comment on above: Performed By: #### 2 [id number] #### [facility],[address] [place] [address] INTERNAL CONTROL PASS Normal [facility] Comment on above: Performed By: #### 2 [id number] #### [address] [address] SARS ANTIGEN Negative Normal NORMAL: NEGATIVE [facility] Comment on above: Performed By: #### 2 [id number] #### [facility],[address] [place] [address] SEND TO ? YES Normal [facility] Comment on above: Result Comment: SARS -CoV-2 THIS TEST IS BEING USED UNDER THE FDA EUA PROCEDURE. THIS ASSAY HAS BEEN VALIDATED AT [facility] FOR USE WITH NASAL AND NASOPHARYNGEAL SWAB [...] PUBLIC HEALTH AUTHORITIES. 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 [facility] Comment on above: Result Comment: Nega tive for This test was developed and its performance characteristics determined by [facility]'s [facility] [place]. This test has been authorized by FDA [...] developed and its performance characteristics determined by [facility] [place]. This test has been authorized by FDA [...] developed and its performance characteristics determined by [facility] [place]. This test has been authorized by FDA under an Emergency Use Authorization (EUA). This test has been validated in accordance with the FDA's Guidance Document Policy for Diagnostics Testing in Laboratories Certified to Perform High Complexity Testing under CLIA prior to Emergency use Authorization for Coronavirus Disease 2019 during the Public Health Emergency issued on July 02, 2019. 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 Agon 05-03 Hepatitis B Surf. Ag NEGAT Normal Negative [facility] Comment on above: Performed By: #### H BSAG, [id number] #### [facility] Routine Lab [address] [address] Encounters Encounter Date Encounter Type Care Provider Facility Start: 08-21-2023 End: 08-26-2023 ambulatory Facility:[facility] Start: 02-17-2023 End: 02-22-2023 [facility] Start: 02-17-2023 End: 02-22-2023 Encounter for general adult medical examination without abnormal findings [facility] Start: 05-13-2021 End: 05-13-[address] CAYDEN BRIZUELA [facility] Start: 04-03-2021 End: 04-03-2021 ambulatory MADISYN ARAGON [facility] Payers Date Payer Category Payer Self-pay 2023 Unknown 2023 Private Health Insurance [id number] 1985 Unknown [id number] [id number] [id number] 1985 Unknown [id number] 2.16.84 [id number] 1985 Unknown [id number] [id number] [id number] Unknown [id number] Unknown [id number] 2.16.8 [id number] Summary Purpose Family History No Family History [...] section and content) DATE CREATED AUTHOR 12/03/2019 [facility] DATE CREATED AUTHOR AUTHOR'S ORGANIZ ATION 05/14/2021 [facility] DATE CREATED AUTHOR AUTHOR'S ORGANIZ ATION 02/23/2023 [facility] ([place]) DATE CREATED AUTHOR AUTHOR'S ORGANIZ ATION 08/27/2023 [facility] FOR RECORDS PERTAINING TO PATIENTS WHO ARE [...] BE BASED ON THE PRIMARY CLINICAL RECORDS. [employer] [facility]. provides no warranty or guarantee of the accuracy or completeness of information in this document.
[2025-04-16] MEDS: Ketorolac 30 MG/ML Syringe IM (10:45)
[2025-04-16 12:10] VITALS: BP 130/76; PULSE 71; RESP 16; O2SAT 100
[2025-04-16 12:20] VITALS: BP 130/76; PULSE 71; RESP 16; TEMP 36.6; O2SAT 100
== END 2025-04-16 12:21 | disposition home or self-care (01) ==
PROVIDERS: Emergency Provider Student in an Organized Health Care Education/Training Program; PCP Preventive Medicine Occupational Medicine; Visit Provider Student in an Organized Health Care Education/Training Program
DX: M54.12 Radiculopathy, cervical region (principal); M79.603 Pain in arm, unspecified
CPT/HCPCS: 72125; 93005; 96372; 99283

== ENCOUNTER → 2025-04-25 | Outpatient (CLI) | payer OTHER, SELFPAY ==
--- NOTE | 2025-04-25 14:30 | MRI_ITS ---
PROCEDURE: SPINE CERVICAL (ROUTINE) 04/25/2025 REASON FOR EXAM: Cervical radiculopathy TECHNIQUE: Procedure Code: MRISPC Modality: MR Procedure: SPINE CERVICAL (ROUTINE) Multiplanar and multisequence images were obtained without IV contrast administration. COMPARISON: None available. FINDINGS: The visualized posterior fossa contents appear within normal limits. The normal cervical lordosis is maintained. The atlantooccipital and atlantoaxial joints appear normally aligned. The cervical vertebral bodies are normal in height. The cervical vertebral bodies are normal in alignment. The cervical bone marrow signal is within normal limits. There is no evidence of cervical spinal cord signal abnormality. C2-C3: No significant spinal canal stenosis or neural foraminal narrowing. C3-C4: No significant spinal canal stenosis or neural foraminal narrowing. C4-C5: No significant spinal canal stenosis or neural foraminal narrowing. C5-C6: No significant spinal canal stenosis or neural foraminal narrowing. C6-C7: Disc bulge and superimposing right foraminal disc protrusion contributes to mild spinal canal stenosis severe right neural foraminal stenosis. No significant left neural foraminal narrowing. C7-T1: No significant spinal canal stenosis or neural foraminal narrowing. MRI/Spine Cervical (Routine) IMPRESSION: C6-C7 severe right neural foraminal stenosis predominantly secondary to right f oraminal disc protrusion. Reading Location: [id number]
--- OUTSIDE RECORDS SUMMARY | 2025-04-25 16:14 | XMS RPT_ITS | CCD ---
Author Organization [facility] Care Team Providers Care Labor Relations Officer Name Role Phone CHATA, DR CAYDEN Guerrero Admitting Unavaila ble CHATA, DR CAYDEN Guerrero Attending Unavaila ble CHATA, DR CAYDEN Guerrero Primary Care Unavaila ble MARGO, MADISYN Attending Unavailable ARAGON, MADISYN Primary Care Unavailable MADISYN ARAGON Admitting Unavailable BALTES SUPERVISOR PRINTING AND STAMPING-DIRECTOR BUSINESS INTEGRATION, DAVID Attending Unavailabl e BALTES SUPERVISOR PRINTING AND STAMPING-DIRECTOR BUSINESS INTEGRATION, DAVID Primary Care Unavailabl e Results Test Name Value Interpretation Reference Range Facil ity .Auto Diffon 02-17-2023 Basophil, Absolute 0.0 10 3/mcL Normal 0.0-0.2 [facility] ([place]) Comment on above: Performed By: #### G FR, CMP, LIPID, ANEU, ADIFF, CBC #### [address] [address] Basophils/100 WBC (Bld) 0.5 % Normal 0.0-2.5 [facility] ([place]) Comment on above: Performed By: #### G FR, CMP, LIPID, ANEU, ADIFF, CBC #### [address] [address] Eosinophil, Absolute 0.2 10 3/mcL Normal 0.0-0.4 [facility] ([place]) Comment on above: Performed By: #### G FR, CMP, LIPID, ANEU, ADIFF, CBC #### [address] [address] Eosinophils/100 WBC (Bld) 3.3 % Normal 0.0-7.0 [facility] ([place]) Comment on above: Performed By: #### G FR, CMP, LIPID, ANEU, ADIFF, CBC #### [address] [address] Lymphocyte, Absolute 1.5 10 3/mcL Normal 0.8-3.9 [facility] ([place]) Comment on above: Performed By: #### G FR, CMP, LIPID, ANEU, ADIFF, CBC #### [address] [address] Lymphocytes/100 WBC (Bld) 25.3 % Normal 10.0-50.0 [facility] ([place]) Comment on above: Performed By: #### G FR, CMP, LIPID, ANEU, ADIFF, CBC #### [address] [address] Monocyte, Absolute 0.5 10 3/mcL Normal 0.2-1.0 [facility] ([place]) Comment on above: Performed By: #### G FR, CMP, LIPID, ANEU, ADIFF, CBC #### [address] [address] Monocytes/100 WBC (Bld) 7.8 % Normal 1.7-13.0 [facility] ([place]) Comment on above: Performed By: #### G FR, CMP, LIPID, ANEU, ADIFF, CBC #### [address] [address] Neutrophils/100 WBC (Bld) 63.1 % Normal 37.0-80.0 [facility] ([place]) Comment on above: Performed By: #### G FR, CMP, LIPID, ANEU, ADIFF, CBC #### [address] [address] .GFRon 02-17-2023 GFR 122 ml/min/1.73sqm Normal [facility] ([place]) Comment on above: Result Comment: GFR Population [...] FR, CMP, LIPID, ANEU, ADIFF, CBC #### [address] [address] GFR Non- 100 ml/min/1.73sqm Normal [facility] ([place]) Comment on above: Result Comment: GFR Population [...] FR, CMP, LIPID, ANEU, ADIFF, CBC #### [address] [address] .NEUABSon 02-17-2023 Neutrophil, Absolute 3.7 10 3/mcL Normal 2.9-6.2 [facility] ([place]) Comment on above: Performed By: #### G FR, CMP, LIPID, ANEU, ADIFF, CBC #### [address] [address] CBCon 02-17-2023 Erythrocyte distribution width (RBC) [Ratio] 12.8 % Normal 11.5-14.5 [facility] ([place]) Comment on above: Performed By: #### G FR, CMP, LIPID, ANEU, ADIFF, CBC #### [address] [address] Hematocrit (Bld) [Volume fraction] 44.1 % Normal 42.0-52.0 [facility] ([place]) Comment on above: Performed By: #### G FR, CMP, LIPID, ANEU, ADIFF, CBC #### [address] [address] Hgb 14.6 G/dL Normal 14.0-18.0 [facility] ([place]) Comment on above: Performed By: #### G FR, CMP, LIPID, ANEU, ADIFF, CBC #### [address] [address] MCH (RBC) [Entitic mass] 29.5 pg Normal 27.0-31.2 [facility] ([place]) Comment on above: Performed By: #### G FR, CMP, LIPID, ANEU, ADIFF, CBC #### [address] [address] MCHC 33.2 G/dL Normal 31.8-35.4 [facility] ([place]) Comment on above: Performed By: #### G FR, CMP, LIPID, ANEU, ADIFF, CBC #### [address] [address] MCV (RBC) [Entitic vol] 89.0 fL Normal 80.0-94.0 [facility] ([place]) Comment on above: Performed By: #### G FR, CMP, LIPID, ANEU, ADIFF, CBC #### [address] [address] Platelet 237 10 3/mcL Normal 130-400 [facility] ([place]) Comment on above: Performed By: #### G FR, CMP, LIPID, ANEU, ADIFF, CBC #### [address] [address] Platelet mean volume (Bld) [Entitic vol] 8.1 fL Normal 7.4-10.4 [facility] ([place]) Comment on above: Performed By: #### G FR, CMP, LIPID, ANEU, ADIFF, CBC #### [address] [address] RBC 4.95 10 6/mcL Normal 4.04-6.13 [facility] ([place]) Comment on above: Performed By: #### G FR, CMP, LIPID, ANEU, ADIFF, CBC #### [address] [address] WBC 5.9 10 3/mcL Normal 4.6-10.8 [facility] ([place]) Comment on above: Performed By: #### G FR, CMP, LIPID, ANEU, ADIFF, CBC #### [address] [address] CMPon 02-17-2023 Albumin Level 4.5 G/dL Normal 3.5-5.0 [facility] ([place]) Comment on above: Performed By: #### G FR, CMP, LIPID, ANEU, ADIFF, CBC #### [address] [address] Albumin/Globulin [Mass ratio] 1.7 {ratio} Normal 1.1-2.5 [facility] ([place]) Comment on above: Performed By: #### G FR, CMP, LIPID, ANEU, ADIFF, CBC #### [address] [address] ALP [Catalytic activity/Vol] 72 U/L Normal 40-135 [facility] ([place]) Comment on above: Performed By: #### G FR, CMP, LIPID, ANEU, ADIFF, CBC #### [address] [address] ALT [Catalytic activity/Vol] 15 U/L Low 16-63 [facility] ([place]) Comment on above: Performed By: #### G FR, CMP, LIPID, ANEU, ADIFF, CBC #### [address] [address] AST [Catalytic activity/Vol] 10 U/L Normal 10-40 [facility] ([place]) Comment on above: Performed By: #### G FR, CMP, LIPID, ANEU, ADIFF, CBC #### [address] [address] Bili Total 0.7 mg/dL Normal 0.2-1.0 [facility] ([place]) Comment on above: Result Comment: Use of this assay is not recommended for patients undergoing treatment with eltrombopag due to the potential for falsely elevated results. Performed By: #### G FR, CMP, LIPID, ANEU, ADIFF, CBC #### [address] [address] BUN/Creatinine Ratio 20 ratio Normal 7-27 [facility] ([place]) Comment on above: Performed By: #### G FR, CMP, LIPID, ANEU, ADIFF, CBC #### [address] [address] Calcium [Mass/Vol] 8.6 mg/dL Normal 8.4-10.2 [facility] ([place]) Comment on above: Performed By: #### G FR, CMP, LIPID, ANEU, ADIFF, CBC #### [address] [address] Chloride [Moles/Vol] 105 mmol/L Normal 98-107 [facility] ([place]) Comment on above: Performed By: #### G FR, CMP, LIPID, ANEU, ADIFF, CBC #### [address] [address] CO2 [Moles/Vol] 29 mmol/L Normal 22-29 [facility] ([place]) Comment on above: Performed By: #### G FR, CMP, LIPID, ANEU, ADIFF, CBC #### [address] [address] Creatinine [Mass/Vol] 0.85 mg/dL Normal 0.70-1.30 [facility] ([place]) Comment on above: Performed By: #### G FR, CMP, LIPID, ANEU, ADIFF, CBC #### [address] [address] Electrolyte Balance 9.0 mEq/L Normal 4.0-15.0 [facility] ([place]) Comment on above: Performed By: #### G FR, CMP, LIPID, ANEU, ADIFF, CBC #### [address] [address] Globulin 2.7 G/dL Normal [facility] ([place]) Comment on above: Performed By: #### G FR, CMP, LIPID, ANEU, ADIFF, CBC #### [address] [address] Glucose [Mass/Vol] 93 mg/dL Normal 70-105 [facility] ([place]) Comment on above: Performed By: #### G FR, CMP, LIPID, ANEU, ADIFF, CBC #### [address] [address] Potassium [Moles/Vol] 4.3 mmol/L Normal 3.5-5.1 [facility] ([place]) Comment on above: Performed By: #### G FR, CMP, LIPID, ANEU, ADIFF, CBC #### [address] [address] Sodium [Moles/Vol] 143 mmol/L Normal 136-145 [facility]) Comment on above: Performed By: #### G FR, CMP, LIPID, ANEU, ADIFF, CBC #### [address] [address] Total Protein 7.2 G/dL Normal 6.4-8.2 [facility]) Comment on above: Performed By: #### G FR, CMP, LIPID, ANEU, ADIFF, CBC #### [address] [address] Urea nitrogen [Mass/Vol] 17 mg/dL Normal 7-18 [facility]) Comment on above: Performed By: #### G FR, CMP, LIPID, ANEU, ADIFF, CBC #### [address] [address] LIPIDon 02-17-2023 Cholesterol [Mass/Vol] 129 mg/dL Normal 0-200 [facility] ([place]) Comment on above: Result Comment: Chol esterol Reference Interval: Less than 200 Desirable 200-239 Borderline high risk 240 and above High risk Performed By: #### G FR, CMP, LIPID, ANEU, ADIFF, CBC #### [address] [address] Cholesterol in HDL [Mass/Vol] 65 mg/dL High 40-60 [facility] ([place]) Comment on above: Performed By: #### G FR, CMP, LIPID, ANEU, ADIFF, CBC #### [id number] [place], [place] [address] Cholesterol in LDL [Mass/Vol] 57 mg/dL Normal 0-130 [facility] ([place]) Comment on above: Performed By: #### G FR, CMP, LIPID, ANEU, ADIFF, CBC #### [address] [place], [place] [address] Triglyceride [Mass/Vol] 37 mg/dL Normal 0-150 [facility] ([place]) Comment on above: Result Comment: Trig lyceride Reference Interval: Less than 150 Normal 150-199 Borderline high risk 200-499 High risk 500 or higher Very high risk Performed By: #### G FR, CMP, LIPID, ANEU, ADIFF, CBC #### [address] [address] CORONAVIRUS PCR - [facility] 05-13-2021 SARS-CoV-2 (COVID-19) RNA MARICRUZ+probe Ql (Unsp spec) Positive Abnormal NORMAL: NEGATIVE [facility] Comment on above: Result Comment: { CA LLED TO INFECTION CONTROL { READ BACK BY Performed By: #### 2 [id number] #### [facility],[address] [place] [address] SEND TO IC? YES Normal [facility] Comment on above: Result Comment: RESU LTS FAXED TO INFECTION CONTROL. SARS-CoV-2 THIS TEST IS BEING USED UNDER THE FDA EUA PROCEDURE. THIS ASSAY HAS BEEN VALIDATED IN THE [facility] FOR USE WITH NASOPHARYNGEAL SPECIMENS IN [facility]. INTERPRETIVE DATA LABORATORY TEST RESULTS SHOULD ALWAYS [...] PUBLIC HEALTH AUTHORITIES. Performed By: #### 2 [id number] #### [facility],[address] [place] [address] CORONAVIRUS (SARS) ANTIGEN T ESTon 04-03-2021 EXTERNAL QC DONE? YES Normal [facility] Comment on above: Performed By: #### 2 [id number] #### [facility],[address] [place] [address] INTERNAL CONTROL PASS Normal [facility] Comment on above: Performed By: #### 2 [id number] #### [address] [address] SARS ANTIGEN Negative Normal NORMAL: NEGATIVE [facility] Comment on above: Performed By: #### 2 [id number] #### [facility],[address] [place] [address] SEND TO ? YES Normal [facility] Comment on above: Result Comment: SARS -CoV-2 THIS TEST IS BEING USED UNDER THE FDA EUA PROCEDURE. THIS ASSAY HAS BEEN VALIDATED AT [facility] FOR USE WITH NASAL AND NASOPHARYNGEAL SWAB [...] PUBLIC HEALTH AUTHORITIES. 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 [facility] Comment on above: Result Comment: Nega tive for This test was developed and its performance characteristics determined by [facility]'s [facility]. This test has been authorized by FDA [...] developed and its performance characteristics determined by [facility]. This test has been authorized by FDA [...] developed and its performance characteristics determined by [facility]. This test has been authorized by FDA under an Emergency Use Authorization (EUA). This test has been validated in accordance with the FDA's Guidance Document Policy for Diagnostics Testing in Laboratories Certified to Perform High Complexity Testing under CLIA prior to Emergency use Authorization for Coronavirus Disease 2019 during the Public Health Emergency issued on July 02, 2019. COVID 19 Source [employer]AN[employer] MILL OPERATOR BAN[employer] M[employer] OPERATOR Normal [facility] Hep C Ab IA w/Confon 019 Hepatitis C Ab IA NEGAT Normal Negative [facility] Comment on above: Performed By: #### H BSAG, [id number] #### [facility] Routine Lab [address] [address] Hepatitis B Surf. Agon 05-03 Hepatitis B Surf. Ag NEGAT Normal Negative [facility] Comment on above: Performed By: #### H BSAG, [id number] #### [facility] Routine Lab [address] [address] Encounters Encounter Date Encounter Type Care Provider Facility Start: 08-21-2023 End: 08-26-2023 ambulatory Facility:[facility] Start: 02-17-2023 End: 02-22-2023 [facility] Start: 02-17-2023 End: 02-22-2023 Encounter for general adult medical examination without abnormal findings [facility] Start: 05-13-2021 End: 05-13-[address] CAYDEN BRIZUELA [facility] Start: 04-03-2021 End: 04-03-2021 ambulatory MADISYN ARAGON [facility] Payers Date Payer Category Payer Self-pay 2023 Unknown 2023 Private Health Insurance [id number] 1985 Unknown [id number] 2.16.84 [id number] 1985 Unknown [id number] 2.16.84 [id number] 1985 Unknown [id number] [id number] [id number] Unknown [id number] Unknown [id number] 2.16.8 [id number] Summary Purpose Family History No Family History [...] section and content) DATE CREATED AUTHOR 12/03/2019 [facility] DATE CREATED AUTHOR AUTHOR'S ORGANIZ ATION 05/14/2021 [facility] DATE CREATED AUTHOR AUTHOR'S ORGANIZ ATION 02/23/2023 [facility] ([place]) DATE CREATED AUTHOR AUTHOR'S ORGANIZ ATION 08/27/2023 [facility] FOR RECORDS PERTAINING TO PATIENTS [...] BE BASED ON THE PRIMARY CLINICAL RECORDS. [employer] [facility]. provides no warranty or guarantee of the accuracy or completeness of information in this document.
== END | disposition home or self-care (01) ==
LOC: MRI 14:24
PROVIDERS: PCP Preventive Medicine Occupational Medicine; Referring Provider Student in an Organized Health Care Education/Training Program; Visit Provider Student in an Organized Health Care Education/Training Program
DX: M54.12 Radiculopathy, cervical region (principal)
CPT/HCPCS: 72141

== ENCOUNTER → 2025-04-26 | Outpatient (CLI) | payer OTHER, SELFPAY ==
--- NOTE | 2025-04-26 13:21 | RAD_ITS ---
PROCEDURE: CERV SPINE 4 OR 5 VIEWS 04/26/2025 REASON FOR EXAM: ACUTE CERVICAL SPINE PAIN TECHNIQUE: Procedure Code: RADSPC Modality: DX Procedure: CERV SPINE 4 OR 5 VIEWS COMPARISON: None available. FINDINGS: The cervical lordosis is maintained. There is no significant spondylolisthesis. The vertebral body heights and cervical spine are maintained. Small scattered anterior osteophytes. No prevertebral soft tissue swelling. RAD/Cerv Spine 4 or 5 Views IMPRESSION: No significant spondylolisthesis in the cervical spine. Degenerative changes o f the cervical spine. Reading Location: [id number]
--- OUTSIDE RECORDS SUMMARY | 2025-04-26 13:24 | XMS RPT_ITS | CCD ---
Author Organization [facility] Care Team Providers Care Executive Director Global Brand Marketing Name Role Phone CHATA, DR CAYDEN Guerrero Admitting Unavaila ble CHATA, DR CAYDEN Guerrero Attending Unavaila ble CHATA, DR CAYDEN Guerrero Primary Care Unavaila ble MARGO, MADISYN Attending Unavailable ARAGON, MADISYN Primary Care Unavailable MADISYN ARAGON Admitting Unavailable BALTES MOTO MIX OPERATOR-ENTRY LEVEL SOFTWARE DEVELOPER, DAVID Attending Unavailabl e BALTES MOTO MIX OPERATOR-ENTRY LEVEL SOFTWARE DEVELOPER, DAVID Primary Care Unavailabl e Results Test Name Value Interpretation Reference Range Facil ity .Auto Diffon 02-17-2023 Basophil, Absolute 0.0 10 3/mcL Normal 0.0-0.2 [facility] ([place]) Comment on above: Performed By: #### G FR, CMP, LIPID, ANEU, ADIFF, CBC #### [address] [address] Basophils/100 WBC (Bld) 0.5 % Normal 0.0-2.5 On License Of [facility] ([place]) Comment on above: Performed By: #### G FR, CMP, LIPID, ANEU, ADIFF, CBC #### [address] [address] Eosinophil, Absolute 0.2 10 3/mcL Normal 0.0-0.4 On License Of [facility] ([place]) Comment on above: Performed By: #### G FR, CMP, LIPID, ANEU, ADIFF, CBC #### [address] [address] Eosinophils/100 WBC (Bld) 3.3 % Normal 0.0-7.0 On License Of [facility] ([place]) Comment on above: Performed By: #### G FR, CMP, LIPID, ANEU, ADIFF, CBC #### [address] [address] Lymphocyte, Absolute 1.5 10 3/mcL Normal 0.8-3.9 On License Of [facility] ([place]) Comment on above: Performed By: #### G FR, CMP, LIPID, ANEU, ADIFF, CBC #### [address] [address] Lymphocytes/100 WBC (Bld) 25.3 % Normal 10.0-50.0 On License Of [facility] ([place]) Comment on above: Performed By: #### G FR, CMP, LIPID, ANEU, ADIFF, CBC #### [address] [address] Monocyte, Absolute 0.5 10 3/mcL Normal 0.2-1.0 [facility] ([place]) Comment on above: Performed By: #### G FR, CMP, LIPID, ANEU, ADIFF, CBC #### [address] [address] Monocytes/100 WBC (Bld) 7.8 % Normal 1.7-13.0 On License Of [facility] ([place]) Comment on above: Performed By: #### G FR, CMP, LIPID, ANEU, ADIFF, CBC #### [address] [address] Neutrophils/100 WBC (Bld) 63.1 % Normal 37.0-80.0 On License Of [facility] ([place]) Comment on above: Performed By: #### G FR, CMP, LIPID, ANEU, ADIFF, CBC #### [address] [address] .GFRon 02-17-2023 GFR 122 ml/min/1.73sqm Normal [facility] ([place]) Comment on above: Result Comment: GFR Population [...] FR, CMP, LIPID, ANEU, ADIFF, CBC #### [address] [address] GFR Non- 100 ml/min/1.73sqm Normal [facility] ([place]) Comment on above: Result Comment: GFR Population [...] FR, CMP, LIPID, ANEU, ADIFF, CBC #### [address] [address] .NEUABSon 02-17-2023 Neutrophil, Absolute 3.7 10 3/mcL Normal 2.9-6.2 On License Of [facility] ([place]) Comment on above: Performed By: #### G FR, CMP, LIPID, ANEU, ADIFF, CBC #### [address] [address] CBCon 02-17-2023 Erythrocyte distribution width (RBC) [Ratio] 12.8 % Normal 11.5-14.5 On License Of [facility] ([place]) Comment on above: Performed By: #### G FR, CMP, LIPID, ANEU, ADIFF, CBC #### [address] [address] Hematocrit (Bld) [Volume fraction] 44.1 % Normal 42.0-52.0 On License Of [facility] ([place]) Comment on above: Performed By: #### G FR, CMP, LIPID, ANEU, ADIFF, CBC #### [address] [address] Hgb 14.6 G/dL Normal 14.0-18.0 On License Of [facility] ([place]) Comment on above: Performed By: #### G FR, CMP, LIPID, ANEU, ADIFF, CBC #### [address] [address] MCH (RBC) [Entitic mass] 29.5 pg Normal 27.0-31.2 On License Of [facility] ([place]) Comment on above: Performed By: #### G FR, CMP, LIPID, ANEU, ADIFF, CBC #### [address] [address] MCHC 33.2 G/dL Normal 31.8-35.4 On License Of [facility] ([place]) Comment on above: Performed By: #### G FR, CMP, LIPID, ANEU, ADIFF, CBC #### [address] [address] MCV (RBC) [Entitic vol] 89.0 fL Normal 80.0-94.0 On License Of [facility] ([place]) Comment on above: Performed By: #### G FR, CMP, LIPID, ANEU, ADIFF, CBC #### [address] [address] Platelet 237 10 3/mcL Normal 130-400 [facility] ([place]) Comment on above: Performed By: #### G FR, CMP, LIPID, ANEU, ADIFF, CBC #### [address] [address] Platelet mean volume (Bld) [Entitic vol] 8.1 fL Normal 7.4-10.4 On License Of [facility] ([place]) Comment on above: Performed By: #### G FR, CMP, LIPID, ANEU, ADIFF, CBC #### [address] [address] RBC 4.95 10 6/mcL Normal 4.04-6.13 [facility] ([place]) Comment on above: Performed By: #### G FR, CMP, LIPID, ANEU, ADIFF, CBC #### [address] [address] WBC 5.9 10 3/mcL Normal 4.6-10.8 [facility] ([place]) Comment on above: Performed By: #### G FR, CMP, LIPID, ANEU, ADIFF, CBC #### [address] [address] CMPon 02-17-2023 Albumin Level 4.5 G/dL Normal 3.5-5.0 [facility] ([place]) Comment on above: Performed By: #### G FR, CMP, LIPID, ANEU, ADIFF, CBC #### [address] [address] Albumin/Globulin [Mass ratio] 1.7 {ratio} Normal 1.1-2.5 On License Of [facility] ([place]) Comment on above: Performed By: #### G FR, CMP, LIPID, ANEU, ADIFF, CBC #### [address] [address] ALP [Catalytic activity/Vol] 72 U/L Normal 40-135 On License Of [facility] ([place]) Comment on above: Performed By: #### G FR, CMP, LIPID, ANEU, ADIFF, CBC #### [address] [address] ALT [Catalytic activity/Vol] 15 U/L Low 16-63 On License Of [facility] ([place]) Comment on above: Performed By: #### G FR, CMP, LIPID, ANEU, ADIFF, CBC #### [address] [address] AST [Catalytic activity/Vol] 10 U/L Normal 10-40 On License [facility] ([place]) Comment on above: Performed By: #### G FR, CMP, LIPID, ANEU, ADIFF, CBC #### [address] [address] Bili Total 0.7 mg/dL Normal 0.2-1.0 On License Of [facility] ([place]) Comment on above: Result Comment: Use of this assay is not recommended for patients undergoing treatment with eltrombopag due to the potential for falsely elevated results. Performed By: #### G FR, CMP, LIPID, ANEU, ADIFF, CBC #### [address] [address] BUN/Creatinine Ratio 20 ratio Normal 7-27 On License Of [facility] ([place]) Comment on above: Performed By: #### G FR, CMP, LIPID, ANEU, ADIFF, CBC #### [address] [address] Calcium [Mass/Vol] 8.6 mg/dL Normal 8.4-10.2 [facility] ([place]) Comment on above: Performed By: #### G FR, CMP, LIPID, ANEU, ADIFF, CBC #### [address] [address] Chloride [Moles/Vol] 105 mmol/L Normal 98-107 On License Of [facility] ([place]) Comment on above: Performed By: #### G FR, CMP, LIPID, ANEU, ADIFF, CBC #### [address] [address] CO2 [Moles/Vol] 29 mmol/L Normal 22-29 [facility] ([place]) Comment on above: Performed By: #### G FR, CMP, LIPID, ANEU, ADIFF, CBC #### [address] [address] Creatinine [Mass/Vol] 0.85 mg/dL Normal 0.70-1.30 On License Of [facility] ([place]) Comment on above: Performed By: #### G FR, CMP, LIPID, ANEU, ADIFF, CBC #### [address] [address] Electrolyte Balance 9.0 mEq/L Normal 4.0-15.0 On License Of [facility] ([place]) Comment on above: Performed By: #### G FR, CMP, LIPID, ANEU, ADIFF, CBC #### [address] [address] Globulin 2.7 G/dL Normal On License Of [facility] ([place]) Comment on above: Performed By: #### G FR, CMP, LIPID, ANEU, ADIFF, CBC #### [address] [address] Glucose [Mass/Vol] 93 mg/dL Normal 70-105 [facility] ([place]) Comment on above: Performed By: #### G FR, CMP, LIPID, ANEU, ADIFF, CBC #### [address] [address] Potassium [Moles/Vol] 4.3 mmol/L Normal 3.5-5.1 On License Of [facility] ([place]) Comment on above: Performed By: #### G FR, CMP, LIPID, ANEU, ADIFF, CBC #### [address] [address] Sodium [Moles/Vol] 143 mmol/L Normal 136-145 [facility]) Comment on above: Performed By: #### G FR, CMP, LIPID, ANEU, ADIFF, CBC #### [address] [address] Total Protein 7.2 G/dL Normal 6.4-8.2 [facility]) Comment on above: Performed By: #### G FR, CMP, LIPID, ANEU, ADIFF, CBC #### [address] [address] Urea nitrogen [Mass/Vol] 17 mg/dL Normal 7-18 [facility]) Comment on above: Performed By: #### G FR, CMP, LIPID, ANEU, ADIFF, CBC #### [address] [address] LIPIDon 02-17-2023 Cholesterol [Mass/Vol] 129 mg/dL Normal 0-200 On License Of [facility] ([place]) Comment on above: Result Comment: Chol esterol Reference Interval: Less than 200 Desirable 200-239 Borderline high risk 240 and above High risk Performed By: #### G FR, CMP, LIPID, ANEU, ADIFF, CBC #### [address] [address] Cholesterol in HDL [Mass/Vol] 65 mg/dL High 40-60 On License Of [facility] ([place]) Comment on above: Performed By: #### G FR, CMP, LIPID, ANEU, ADIFF, CBC #### [address] [place], [place] [address] Cholesterol in LDL [Mass/Vol] 57 mg/dL Normal 0-130 On License Of [facility] ([place]) Comment on above: Performed By: #### G FR, CMP, LIPID, ANEU, ADIFF, CBC #### [address] [place], [place] [address] Triglyceride [Mass/Vol] 37 mg/dL Normal 0-150 On License Of [facility] ([place]) Comment on above: Result Comment: Trig lyceride Reference Interval: Less than 150 Normal 150-199 Borderline high risk 200-499 High risk 500 or higher Very high risk Performed By: #### G FR, CMP, LIPID, ANEU, ADIFF, CBC #### [address] [address] CORONAVIRUS PCR - [facility] 05-13-2021 SARS-CoV-2 (COVID-19) RNA MARICRUZ+probe Ql (Unsp spec) Positive Abnormal NORMAL: NEGATIVE [facility] Comment on above: Result Comment: { CA LLED TO INFECTION CONTROL { READ BACK BY Performed By: #### 2 [id number] #### [facility],[address] [place] [address] SEND TO IC? YES Normal [facility] Comment on above: Result Comment: RESU LTS FAXED TO INFECTION CONTROL. SARS-CoV-2 THIS TEST IS BEING USED UNDER THE FDA EUA PROCEDURE. THIS ASSAY HAS BEEN VALIDATED IN THE [facility] FOR USE WITH NASOPHARYNGEAL SPECIMENS IN [facility]. INTERPRETIVE DATA LABORATORY TEST RESULTS SHOULD [...] PUBLIC HEALTH AUTHORITIES. Performed By: #### 2 [id number] #### [facility],[address] [place] [address] CORONAVIRUS (SARS) ANTIGEN T ESTon 04-03-2021 EXTERNAL QC DONE? YES Normal [facility] Comment on above: Performed By: #### 2 [id number] #### [facility],[address] [place] [address] INTERNAL CONTROL PASS Normal [facility] Comment on above: Performed By: #### 2 [id number] #### [address] [address] SARS ANTIGEN Negative Normal NORMAL: NEGATIVE [facility] Comment on above: Performed By: #### 2 [id number] #### [facility],[address] [place] [address] SEND TO ? YES Normal [facility] Comment on above: Result Comment: SARS -CoV-2 THIS TEST IS BEING USED UNDER THE FDA EUA PROCEDURE. THIS ASSAY HAS BEEN VALIDATED AT [facility] FOR USE WITH NASAL AND NASOPHARYNGEAL SWAB [...] PUBLIC HEALTH AUTHORITIES. Performed By: #### 2 [id number] #### [facility],[address] [place] [address] Coronavirus 2019 0 COVID 19 Result INSOLE COVERER Normal Negative for COVID19 (SARS CoV2) by PCR. [facility] Comment on above: Result Comment: Nega tive for This test was developed and its performance characteristics determined by [facility]'s [facility] [place]. This test has been authorized by FDA [...] developed and its performance characteristics determined by [facility]'s [facility] [place]. This test has been authorized by FDA [...] developed and its performance characteristics determined by [facility]'s [facility] [place]. This test has been authorized by FDA under an Emergency Use Authorization (EUA). This test has been validated in accordance with the FDA's Guidance Document Policy for Diagnostics Testing in Laboratories Certified to Perform High Complexity Testing under CLIA prior to Emergency use Authorization for Coronavirus Disease 2019 during the Public Health Emergency issued on July 02, 2019. COVID 19 Source INSOLE COVERER INSOLE COVERER Normal [facility] Reference Lab Hep C Ab IA w/Confon 019 Hepatitis C Ab IA NEGAT Normal Negative [facility] Comment on above: Performed By: #### H BSAG, [id number] #### [facility] Routine Lab [address] [address] Hepatitis B Surf. Agon 05-03 Hepatitis B Surf. Ag NEGAT Normal Negative [facility] Comment on above: Performed By: #### H BSAG, [id number] #### [facility] Routine Lab [address] [address] Encounters Encounter Date Encounter Type Care Provider Facility Start: 08-21-2023 End: 08-26-2023 ambulatory Facility:[facility] Start: 02-17-2023 End: 02-22-2023 [facility] Start: 02-17-2023 End: 02-22-2023 Encounter for general adult medical examination without abnormal findings [facility] Start: 05-13-2021 End: 05-13-[address] CAYDEN BRIZUEAL [facility] Start: 04-03-2021 End: 04-03-2021 ambulatory MADISYN ARAGON [facility] Payers Date Payer Category Payer Self-pay 2023 Unknown 2023 Private Health Insurance [id number] 1985 Unknown [id number] [id number] [id number] 1985 Unknown [id number] 2.16.84 [id number] 1985 Unknown [id number] [id number] Unknown [id number] Unknown [id number] [id number] Summary Purpose Family History No Family History [...] section and content) DATE CREATED AUTHOR 12/03/2019 [facility] DATE CREATED AUTHOR AUTHOR'S ORGANIZ ATION 05/14/2021 [facility] DATE CREATED AUTHOR AUTHOR'S ORGANIZ ATION 02/23/2023 [facility] ([place]) DATE CREATED AUTHOR AUTHOR'S ORGANIZ ATION 08/27/2023 [facility] FOR RECORDS PERTAINING TO PATIENTS WHO ARE [...] BE BASED ON THE PRIMARY CLINICAL RECORDS. [facility]. provides no warranty or guarantee of the accuracy or completeness of information in this document.
== END | disposition home or self-care (01) ==
LOC: RAD 13:21
PROVIDERS: PCP Preventive Medicine Occupational Medicine; Referring Provider Orthopaedic Surgery Orthopaedic Surgery of the Spine; Visit Provider Orthopaedic Surgery Orthopaedic Surgery of the Spine
DX: M54.12 Radiculopathy, cervical region (principal); M54.2 Cervicalgia
CPT/HCPCS: 72050